=== PATIENT | female | born 1955 | race Two or more races ===

== ENCOUNTER 2021-03-20 09:32 | Inpatient (IN) | payer MEDICAID ==
[~2021-03-20] VITALS: Ht 154.9 cm; Wt 116.5 kg
[~2021-03-20 09:32] MED LIST: ATEN50TA PO; BENA40TA8 PO; CHLO25TA2 PO; HYDR50TA15 PO; INS7030I SC; INSUINJ49 SC; LEVO500T31 PO; PERCOT PO; PIRO20CA PO
[2021-03-20] MEDS ORDERED: SODIUM CHLORIDE 0.9% 1,000 ML IV ONE ×2 (10:45)
[2021-03-20] MEDS ORDERED: ONDANSETRON HCL 4 MG/2 ML VIAL IV ONE ×2 (11:15→20:00)
[2021-03-20] MEDS ORDERED: PROMETHAZINE HCL 25 MG/ML 1ML IV ONE (14:00)
[2021-03-20 15:09] LABS: Albumin 3.6 g/dL (3.4-5.0); Calcium 9.2 mg/dL (8.5-10.1); Potassium 4.9 mmol/L (3.5-5.1)
[2021-03-20 15:10] LABS: Basophils # (auto) 0 10 ^3/uL (0-0.2); Basophils % (auto) 0.1 % (0.0-2.0); Eosinophils # (auto) 0 10 ^3/uL (0-0.8); Hematocrit 44.3 % (36.0-46.0); Hemoglobin 14.5 g/dL (12.2-16.2); Mean Corpuscular Hemoglobin 29.3 pg (28.0-32.0); Mean Corpuscular Hgb Conc. 32.9 g/dL (32.0-36.0); Mean Corpuscular Volume 89.2 fL (80.0-100.0); Monocytes # (auto) 1.3 10 ^3/uL (0-1.3); Monocytes % (auto) 9.7 % (0.0-12.0); Neutrophils # (auto) 10.7 10 ^3/uL (1.6-8.6); Neutrophils % (auto) 82.2 % (37.0-80.0); Nucleated Red Blood Cells % 0.1 %; Red Blood Cells 4.96 10^6/uL (4.0-5.20); Red Cell Distribution Width 13.3 % (11.8-14.3)
[2021-03-20 15:13] LABS: BUN/Creatinine Ratio 25.2; Bilirubin, Total 0.9 mg/dL (0.2-1.0); Total Protein 8.6 g/dL (6.4-8.2)
[2021-03-21 03:08] LABS: Urine Bacteria FEW /hpf (None Seen); Urine Blood 2+ /uL (Negative); Urine Hyaline Cast FEW /lpf (0 - 2); Urine Mucus FEW (None Seen); Urine Specific Gravity 1.028 (1.001-1.035); Urine WBC 1 /hpf (0 - 5)
[2021-03-21] MEDS ORDERED: ONDANSETRON HCL 4 MG/2 ML VIAL ONE (03:24)
[2021-03-21] MEDS ORDERED: fentaNYL CITRATE 100 MCG/2 ML VL ONE (03:24)
[2021-03-21] MEDS ORDERED: fentaNYL CITRATE 100 MCG/2 ML VL IV ONE (03:30)
[2021-03-21] MEDS ORDERED: ONDANSETRON HCL 4 MG/2 ML VIAL IV ONE ×3 (03:30→12:00)
[2021-03-21] MEDS ORDERED: ONDANSETRON HCL 4 MG/2 ML VIAL IV PRN (04:30)
[2021-03-21] MEDS ORDERED: SODIUM CHLORIDE 0.9% 1,000 ML IV SCH (04:30)
[2021-03-21] MEDS ORDERED: MORPHINE SULFATE 4 MG/ML SYR/VIAL IV PRN (04:30)
[2021-03-21] MEDS ORDERED: ACETAMINOPHEN 325 MG TAB PO PRN (04:30)
[2021-03-21] MEDS ORDERED: DEXTROSE (50%) 50ML SYRG IV PRN ×2 (04:30→14:15)
[2021-03-21] MEDS ORDERED: HYDROcodone-ACET 5/325MG TAB PO PRN (04:30)
[2021-03-21] MEDS ORDERED: ACCU-CHEK COMFORT CURVE STRIP VI SCH (06:00)
[2021-03-21] MEDS ORDERED: InsuLIN REG 1unit/0.01ml Soln (100units/ml) SC SCH (06:00)
[2021-03-21] MEDS ORDERED: ENOXAPARIN SOD 100 MG/1 ML SYRINGE SC ONE (09:30)
[2021-03-21] MEDS ORDERED: ATENOLOL 50 MG TAB PO SCH (10:00)
[2021-03-21] MEDS ORDERED: PANTOPRAZOLE 40 MG TAB PO SCH (10:00)
[2021-03-21] MEDS ORDERED: hydrALAZINE HCL 25 MG TAB PO SCH (10:00)
[2021-03-21] MEDS ORDERED: PROMETHAZINE HCL 25 MG/ML 1ML IV PRN (11:45)
[2021-03-21] MEDS ORDERED: NITROGLYCERIN 0.4 MG SL TAB SL PRN (11:45)
[2021-03-21] MEDS: OXYCODONE W/ ACETAMINOPHEN 5/325MG TABLET PO PRN ×2 (12:29→20:04)
[2021-03-21] MEDS ORDERED: PATIENTS OWN MEDICATION (Hydralazine Hcl 50 MG) PO SCH (14:00)
[2021-03-21] MEDS: hydrALAZINE HCL 25 MG TAB PO SCH ×2 (14:14→21:22)
[2021-03-21] MEDS: SUCRALFATE 1 GM/10 ML ORAL SUSP PO SCH (17:26)
[2021-03-21] MEDS: InsuLIN REG 1unit/0.01ml Soln (100units/ml) SC SCH (18:00)
[2021-03-21] MEDS: ACCU-CHEK COMFORT CURVE STRIP VI SCH (18:17)
[2021-03-21] MEDS ORDERED: INFLUENZA QUAD 2021-2022 0.5 ML SYRG IM ONE (21:00)
[2021-03-21] MEDS ORDERED: PNEUMOCOCCAL VACC POLYS 25 MCG/0.5 ML VIAL IM ONE (21:00)
[2021-03-21] MEDS: BENAZEPRIL HCL 10 MG TAB PO SCH (21:23)
[2021-03-21] MEDS: ATENOLOL 50 MG TAB PO SCH (21:23)
[2021-03-21] MEDS: PANTOPRAZOLE 40 MG/10 ML VIAL INJ IV SCH (21:31)
[2021-03-21] MEDS: Chlorthalidone 25 MG TAB PO SCH (21:44)
[2021-03-21] MEDS ORDERED: PATIENTS OWN MEDICATION (Benazepril Hcl 40 MG) PO SCH (22:00)
[2021-03-21 22:23] VITALS: BP 174/79
[2021-03-21] MEDS ORDERED: TEMAZEPAM 15 MG CAP PO PRN (23:00)
[2021-03-21] MEDS: TEMAZEPAM 15 MG CAP PO PRN (23:06)
[2021-03-22] MEDS: ACCU-CHEK COMFORT CURVE STRIP VI SCH ×5 (00:21→23:43)
[2021-03-22 03:58] VITALS: BP 134/72
[2021-03-22 05:26] LABS: Basophils # (auto) 0 10 ^3/uL (0-0.2); Basophils % (auto) 0.3 % (0.0-2.0); Eosinophils # (auto) 0 10 ^3/uL (0-0.8); Eosinophils % (auto) 0.2 % (0.0-7.0); Hematocrit 38.2 % (36.0-46.0); Hemoglobin 12.6 g/dL (12.2-16.2); Lymphocytes % (auto) 24.1 % (10.0-50.0); Mean Corpuscular Hemoglobin 29.6 pg (28.0-32.0); Mean Corpuscular Hgb Conc. 32.9 g/dL (32.0-36.0); Mean Corpuscular Volume 90.2 fL (80.0-100.0); Monocytes # (auto) 1.2 10 ^3/uL (0-1.3); Monocytes % (auto) 14.2 % (0.0-12.0); Neutrophils # (auto) 5.2 10 ^3/uL (1.6-8.6); Neutrophils % (auto) 61.2 % (37.0-80.0); Red Blood Cells 4.24 10^6/uL (4.0-5.20); Red Cell Distribution Width 13.4 % (11.8-14.3); White Blood Cell 8.5 10^3/uL (4.4-10.8)
[2021-03-22 05:44] LABS: INR 1.13 (0.9-1.15); Partial Thromboplastin Time 24.1 sec (23.6-33.0)
[2021-03-22 05:49] LABS: Calcium 8.5 mg/dL (8.5-10.1); Potassium 3.6 mmol/L (3.5-5.1)
[2021-03-22 05:55] LABS: BUN/Creatinine Ratio 24.7
[2021-03-22] MEDS: hydrALAZINE HCL 25 MG TAB PO SCH ×3 (05:56→21:42)
[2021-03-22] MEDS: InsuLIN REG 1unit/0.01ml Soln (100units/ml) SC SCH ×5 (05:57→23:43)
[2021-03-22] MEDS: SUCRALFATE 1 GM/10 ML ORAL SUSP PO SCH ×4 (06:09→18:31)
[2021-03-22] MEDS: hydrALAZINE HCL 20 MG/ML VL IV PRN ×2 (08:42→13:03)
[2021-03-22] MEDS: ATENOLOL 50 MG TAB PO SCH ×2 (08:43→21:43)
[2021-03-22] MEDS: BENAZEPRIL HCL 10 MG TAB PO SCH ×2 (08:48→21:42)
[2021-03-22] MEDS: PANTOPRAZOLE 40 MG/10 ML VIAL INJ IV SCH ×2 (08:51→21:43)
[2021-03-22 09:00] VITALS: BP 142/69
[2021-03-22] MEDS: Chlorthalidone 25 MG TAB PO SCH ×2 (10:00→21:44)
[2021-03-22] MEDS ORDERED: ONDANSETRON HCL 4 MG/2 ML VIAL ONE (10:05)
[2021-03-22] MEDS ORDERED: PROPOFOL 10 MG/ML 20 ML IV ONE (10:05)
[2021-03-22] MEDS ORDERED: fentaNYL CITRATE 100 MCG/2 ML VL ONE (10:05)
[2021-03-22] MEDS ORDERED: MIDAZOLAM HCL 2MG/2ML 2ml VIAL (1mg/ml) ONE (10:05)
[2021-03-22] MEDS ORDERED: SODIUM CHLORIDE LOCK 10 ML ONE (10:05)
[2021-03-22] MEDS ORDERED: BENZOCAINE (DENTAL) 20 % SPRAY 60ML MT ONE (10:18)
[2021-03-22] MEDS ORDERED: METOCLOPRAMIDE HCL 5MG/ml INJ 2ml VIAL IV PRN (11:00)
[2021-03-22] MEDS ORDERED: fentaNYL CITRATE 100 MCG/2 ML VL IV PRN (11:00)
[2021-03-22] MEDS: OXYCODONE W/ ACETAMINOPHEN 5/325MG TABLET PO PRN ×2 (12:51→20:01)
[2021-03-22 13:00] VITALS: BP 178/65
[2021-03-22 16:54] VITALS: BP 125/69
[2021-03-22] MEDS ORDERED: SUCR1SUS10 PO (17:16)
[2021-03-22] MEDS ORDERED: PANT40TA2 PO (17:16)
[2021-03-22] MEDS: TEMAZEPAM 15 MG CAP PO PRN (21:49)
[2021-03-22 22:00] VITALS: BP 134/61
[2021-03-23] MEDS: OXYCODONE W/ ACETAMINOPHEN 5/325MG TABLET PO PRN ×4 (02:08→21:34)
[2021-03-23 04:53] VITALS: BP 159/72
[2021-03-23] MEDS: ACCU-CHEK COMFORT CURVE STRIP VI SCH ×4 (05:56→23:37)
[2021-03-23] MEDS: hydrALAZINE HCL 25 MG TAB PO SCH ×3 (05:56→21:32)
[2021-03-23] MEDS: InsuLIN REG 1unit/0.01ml Soln (100units/ml) SC SCH ×4 (06:00→23:37)
[2021-03-23] MEDS: SUCRALFATE 1 GM/10 ML ORAL SUSP PO SCH ×3 (06:03→18:10)
[2021-03-23 08:28] VITALS: BP 158/73
[2021-03-23] MEDS: PANTOPRAZOLE 40 MG/10 ML VIAL INJ IV SCH ×2 (09:40→21:32)
[2021-03-23] MEDS: BENAZEPRIL HCL 10 MG TAB PO SCH ×2 (09:41→21:33)
[2021-03-23] MEDS: ATENOLOL 50 MG TAB PO SCH ×2 (09:42→21:33)
[2021-03-23] MEDS: Chlorthalidone 25 MG TAB PO SCH ×2 (10:00→21:39)
[2021-03-23 12:52] VITALS: BP 130/58
[2021-03-23] MEDS ORDERED: IOHEXOL 350 MG/ML 100ML IJ ONE (16:26)
[2021-03-23 16:43] VITALS: BP 150/66
[2021-03-23 18:45] VITALS: BP 115/62
[2021-03-23 22:00] VITALS: BP 133/69
[2021-03-23] MEDS: TEMAZEPAM 15 MG CAP PO PRN (23:37)
[2021-03-24 05:00] VITALS: BP 170/71
[2021-03-24] MEDS: hydrALAZINE HCL 25 MG TAB PO SCH ×2 (06:24→13:30)
[2021-03-24] MEDS: ACCU-CHEK COMFORT CURVE STRIP VI SCH ×2 (06:25→12:25)
[2021-03-24] MEDS: InsuLIN REG 1unit/0.01ml Soln (100units/ml) SC SCH ×2 (06:25→12:58)
[2021-03-24] MEDS: SUCRALFATE 1 GM/10 ML ORAL SUSP PO SCH ×2 (06:36→12:58)
[2021-03-24] MEDS: PANTOPRAZOLE 40 MG/10 ML VIAL INJ IV SCH (08:46)
[2021-03-24] MEDS: BENAZEPRIL HCL 10 MG TAB PO SCH (08:47)
[2021-03-24] MEDS: ATENOLOL 50 MG TAB PO SCH (08:50)
[2021-03-24] MEDS: OXYCODONE W/ ACETAMINOPHEN 5/325MG TABLET PO PRN (08:51)
[2021-03-24 09:00] VITALS: BP 166/71
[2021-03-24] MEDS: Chlorthalidone 25 MG TAB PO SCH (10:00)
== END 2021-03-24 14:05 | disposition home or self-care (01) | DRG 241 ==
LOC: ER 09:32 → EDBD 09:32 → OVERFLOW 03-21 04:29 → CENTRAL 03-21 18:51 → TELE-CENTR 03-21 19:12
PROVIDERS: ADMIT Nurse Practitioner; ATTEND Hospitalist
PROC: 0DJ08ZZ Inspection of Upper Intestinal Tract, Via Natural or Artificial Opening Endoscopic (ICD-10-PCS; principal; 2021-03-22 10:28)
DX: K29.70 Gastritis, unspecified, without bleeding (principal); I21.A1 Myocardial infarction type 2; E11.40 Type 2 diabetes mellitus with diabetic neuropathy, unspecified; E66.01 Morbid (severe) obesity due to excess calories; K29.80 Duodenitis without bleeding; K20.90 Esophagitis, unspecified without bleeding; E78.5 Hyperlipidemia, unspecified; Z20.822 Contact with and (suspected) exposure to COVID-19; I25.10 Atherosclerotic heart disease of native coronary artery without angina pectoris; Z86.16 Personal history of COVID-19; Z80.8 Family history of malignant neoplasm of other organs or systems; Z79.4 Long term (current) use of insulin; Z82.49 Family history of ischemic heart disease and other diseases of the circulatory system; Z83.3 Family history of diabetes mellitus; Z88.6 Allergy status to analgesic agent; Z68.42 Body mass index [BMI] 45.0-49.9, adult
CPT/HCPCS: 36415; 71045; 71275; 74176; 80048; 80053; 80061; 81001; 82962; 83036; 83690; 84484; 85025; 85379; 85610; 85730; 86850; 86900; 86901; 87426; 93005; 93306; 96361; 96372; 96374; 96375; 96376; C9113; G0378; J1815; J2250; J2405; J2704

== ENCOUNTER 2021-05-31 19:16 | Emergency (ER) | payer MEDICAID ==
[~2021-05-31] VITALS: Ht 154.9 cm; Wt 136.1 kg
[~2021-05-31 19:16] MED LIST changes: -LEVO500T31 PO; +PANT40TA2 PO; +SUCR1SUS10 PO
[2021-05-31 20:59] LABS: Basophils # (auto) 0 10 ^3/uL (0-0.2); Basophils % (auto) 0.5 % (0.0-2.0); Eosinophils # (auto) 0 10 ^3/uL (0-0.8); Eosinophils % (auto) 0.1 % (0.0-7.0); Hematocrit 43.6 % (36.0-46.0); Hemoglobin 14.8 g/dL (12.2-16.2); Lymphocytes # (auto) 0.8 10 ^3/uL (0.4-5.4); Lymphocytes % (auto) 10.6 % (10.0-50.0); Mean Corpuscular Hemoglobin 30.1 pg (28.0-32.0); Mean Corpuscular Hgb Conc. 33.9 g/dL (32.0-36.0); Mean Corpuscular Volume 88.8 fL (80.0-100.0); Monocytes # (auto) 1.2 10 ^3/uL (0-1.3); Monocytes % (auto) 16.7 % (0.0-12.0); Neutrophils # (auto) 5.3 10 ^3/uL (1.6-8.6); Neutrophils % (auto) 72.1 % (37.0-80.0); Nucleated Red Blood Cells % 0.1 %; Red Blood Cells 4.91 10^6/uL (4.0-5.20); Red Cell Distribution Width 13.8 % (11.8-14.3); White Blood Cell 7.3 10^3/uL (4.4-10.8)
[2021-05-31 21:08] LABS: Alanine Aminotransferase 25 U/L (13-56); Albumin 3.4 g/dL (3.4-5.0); Amylase 50 U/L (25-115); Anion Gap 13 (5-15); Aspartate Aminotransferase 52 U/L (15-37); BUN/Creatinine Ratio 25.2; Blood Urea Nitrogen 31 mg/dL (7-18); Calcium 8.7 mg/dL (8.5-10.1); Carbon Dioxide 23 mmol/L (21-32); Chloride 101 mmol/L (98-107); GFR African American 57 mL/min; GFR Non-African American 47 mL/min; Glucose 151 mg/dL (74-106); Lipase 159 U/L (73-393); Magnesium 1.8 mg/dL (1.6-2.6); Potassium 3.9 mmol/L (3.5-5.1); Sodium 137 mmol/L (136-145)
[2021-05-31 21:10] LABS: Alkaline Phosphatase 101 U/L (45-117); Bilirubin, Total 0.5 mg/dL (0.2-1.0); INR 1.1 (0.9-1.15); Partial Thromboplastin Time 27.1 sec (23.6-33.0)
[2021-05-31] MEDS ORDERED: ONDANSETRON HCL 4 MG/2 ML VIAL IV ONE (21:45)
[2021-05-31] MEDS ORDERED: OXYCODONE W/ ACETAMINOPHEN 5/325MG TABLET PO ONE (21:45)
[2021-05-31] MEDS ORDERED: IOHEXOL 300 MG/ML 100ML BOTTLE IJ ONE (21:46)
[2021-05-31 23:54] LABS: Urine Bacteria MOD /hpf (None Seen); Urine Blood TRACE /uL (Negative); Urine Mucus FEW (None Seen); Urine Specific Gravity > 1.055 (1.001-1.035); Urine WBC 3 /hpf (0 - 5)
[2021-06-01] MEDS ORDERED: ONDA-144 PO (00:07)
[2021-06-01 00:58] VITALS: BP 125/73
== END 2021-06-01 00:59 | disposition home or self-care (01) ==
LOC: EDBD 19:16 → ER 19:16
DX: K52.9 Noninfective gastroenteritis and colitis, unspecified (principal); E11.9 Type 2 diabetes mellitus without complications; I10 Essential (primary) hypertension; Z88.6 Allergy status to analgesic agent; Z88.8 Allergy status to other drugs, medicaments and biological substances
CPT/HCPCS: 36415; 74177; 80053; 81001; 82150; 83690; 83735; 84484; 85025; 85610; 85730; 93005; 96374; 99285; J2405; Q9967